=== PATIENT | female | born 1975 | race Caucasian/White ===

== ENCOUNTER 2016-11-14 22:04 | Emergency (ER) | payer OTHER ==
[~2016-11-14 22:04] MED LIST: ALPRAZOLAM PO; AMITRIPTYLINE150 MG PO; AMITRYPTYLINE PO; ANTIVERT PO; ASPIRIN PO; CELEXA PO; CLEOCIN PO; FLEXERIL PO; HYDROCODON-ACE1 EAC9 PO; HYDROCODONE-APA1 T55 PO; LOPID600 MG PO; LORTAB 5-325 M1 EACH PO; NICOTINE PATCH1 EACH TD; PREMARIN PO; PRILOSEC PO; PRILOSEC40 MG PO; QUETIAPINE FUM300 MG PO; SEROQUEL PO; SEROQUEL XR200 MG PO; SYNTHROID0.05 MG PO; SYNTHROID25 MCG PO; TOPAMAX PO; VALTREX PO; VALTREX500 MG PO; VOLTAREN75 MG PO; XANAX0.5 M1 PO; ZOFRAN PO
[2017-01-19] MEDS ORDERED: XANAX0.5 M1 (16:03)
== END 2016-11-14 23:13 | disposition home or self-care (01) ==
LOC: CED 22:04
DX: T40.1X1A Poisoning by heroin, accidental (unintentional), initial encounter (principal); E78.5 Hyperlipidemia, unspecified; F41.9 Anxiety disorder, unspecified; E03.9 Hypothyroidism, unspecified; F17.210 Nicotine dependence, cigarettes, uncomplicated; Z88.0 Allergy status to penicillin; Z90.49 Acquired absence of other specified parts of digestive tract; Z88.2 Allergy status to sulfonamides; Z88.8 Allergy status to other drugs, medicaments and biological substances; Z79.899 Other long term (current) drug therapy
CPT/HCPCS: 99282

== ENCOUNTER 2017-01-19 16:57 | Emergency (ER) | payer OTHER ==
--- NOTE | ~2017-01-19 | CR206 ---
[facility]. [facility] A Service of [facility] & [facility] RADIOLOGY TEXT RESULTS PATIENT: GIGI HANSEN LOCATION: SED : 71 UNIT #: [id number] AGE: [address]: DILAN CHAPARRO PA-C SEX: F ORDER DR: [id number] [address] [address] [id number] MR#: [id number] Acc #: [id number] NAME: GIGI HANSEN : 1975 SEX: F STUDY DATE/TIME: 01/19/2017 17:13 UNIT: SED ROOM: STUDY DESCRIPTION: CR Pelvis 1 or 2 Views Attending Physician: Dilan Chaparro Pa-C Ordering Physician: Dilan Chaparro Pa-C Primary Care Physician: Primary Care Physician No MEDICAL IMAGING REPORT This report is preliminary unless electronic signature is present. EXAM AP pelvis 01/19/2017 HISTORY Bilateral pelvic pain status post fall at work, 12/12/2016. Persistent pain. FINDINGS AP, supine examination of the pelvis shows satisfactory mineralization of the bony pelvis. The sacroiliac joints are normal. There is no indication of congenital defect, fracture, or dislocation at the articular anatomy of the sacral segments or of the hip joints. No malignant, lytic, or blastic change is present. IMPRESSION Normal pelvis. Dictated by... Thomas Whipple M.D. THIS IS AN ELECTRONICALLY VERIFIED REPORT Thomas Whipple M.D. at 01/20/2017 10:45 AM BELKIS/kareem TD: 01/20/2017 06:54 JOB #: [id number] MEDICAL IMAGING REPORT Page 1 of 1
[~2017-01-19 16:57] MED LIST changes: +XANAX0.5 M1
== END 2017-01-19 17:50 | disposition home or self-care (01) ==
LOC: SED 16:57
DX: M25.551 Pain in right hip (principal); M25.561 Pain in right knee; J45.909 Unspecified asthma, uncomplicated; F41.9 Anxiety disorder, unspecified; F17.210 Nicotine dependence, cigarettes, uncomplicated; Z86.19 Personal history of other infectious and parasitic diseases; Z90.49 Acquired absence of other specified parts of digestive tract; Z90.710 Acquired absence of both cervix and uterus; Z88.0 Allergy status to penicillin; Z88.1 Allergy status to other antibiotic agents; Z88.2 Allergy status to sulfonamides; W01.0XXA Fall on same level from slipping, tripping and stumbling without subsequent striking against object, initial encounter; Y92.69 Other specified industrial and construction area as the place of occurrence of the external cause; Y99.0 Civilian activity done for income or pay
CPT/HCPCS: 72170; 99283

== ENCOUNTER 2017-01-30 10:56 | Emergency (ER) | payer OTHER | END 2017-01-30 13:30 | disposition home or self-care (01) | LOC: CFTX 10:56 → CED 10:56 → CFTX 12:12 | DX: L03.114 Cellulitis of left upper limb (principal); F19.10 Other psychoactive substance abuse, uncomplicated; J44.9 Chronic obstructive pulmonary disease, unspecified; F17.210 Nicotine dependence, cigarettes, uncomplicated; Z88.0 Allergy status to penicillin; Z88.1 Allergy status to other antibiotic agents | CPT/HCPCS: 36415; 90471; 90715; 96365; 99284 ==

== ENCOUNTER → 2017-04-03 | Outpatient (CLI) | payer OTHER ==
--- NOTE | ~2017-04-03 | CR63 ---
[facility] A Service of [facility] RADIOLOGY TEXT RESULTS PATIENT: GIGI HANSEN LOCATION: [facility] : [birth year] UNIT #: [id number] AGE: [address]: Jason Long MD SEX: F ORDER DR: [id number] [facility] [address] [place], [place] [address] [id number] O MR#: [id number] Acc #: [id number] NAME: GIGI HANSEN : 1975 SEX: F STUDY DATE/TIME: 04/03/2017 11:26 UNIT: [facility] ROOM: STUDY DESCRIPTION: CR Chest 2 View Ordering Physician: Sara Long M.D. Primary Care Physician: Elliott French M.D. MEDICAL IMAGING REPORT This report is preliminary unless electronic signature is present EXAM Chest HISTORY 41-year-old woman, short of air, congestion. History of smoking and asthma. COMPARISON Chest 06/02/2015. FINDINGS Two-view exam demonstrates normal cardiac size and configuration. Hilar structures and mediastinal contours are preserved. Lungs are expanded and clear with no infiltrates. Minimal pleural response left costophrenic angle. Incidental note of the mid-thoracic compression fracture with the vertebroplasty. IMPRESSION No acute chest finding. Dictated by... Kojo Quintero M.D. THIS IS AN ELECTRONICALLY VERIFIED REPORT Kojo Quintero M.D. at 04/04/2017 7:07 AM JBB/pcl TD: 04/03/2017 19:38 JOB #: [id number] MEDICAL IMAGING REPORT [facility] A Service of [facility] RADIOLOGY TEXT RESULTS PATIENT: GIGI HANSEN LOCATION: [facility] : 71 UNIT #: [id number] AGE: [address]: Jason Long MD SEX: F ORDER DR: Page 1 of 1 COPY
== END | disposition home or self-care (01) ==
LOC: CRAD 11:14
DX: J45.40 Moderate persistent asthma, uncomplicated (principal); J20.9 Acute bronchitis, unspecified
CPT/HCPCS: 71020

== ENCOUNTER 2017-05-06 19:10 | Emergency (ER) | payer OTHER ==
[~2017-05-06] VITALS: Ht 162.6 cm; Wt 69.8 kg
[2017-05-06 20:17] LABS: BASOPHIL# 0.1 X10e3 (0-0.3); BASOPHIL% 0.8 % (0-2.5); EOSINOPHIL# 0.1 X10e3 (0-0.7); EOSINOPHIL% 1.6 % (0.0-7.0); HEMATOCRIT 41.4 % (35.0-45.0); HEMOGLOBIN 14.1 gm/dL (12.0-16.0); LYMPHOCYTE# 2.7 X10e3 (1.0-3.5); LYMPHOCYTE% 39.4 % (17.0-45.0); MEAN CELL VOLUME 90.7 FL (83-96); MEAN CORPUSCULAR HEMOGLOBIN 30.9 PG (28-34); MEAN CORPUSCULAR HGB CONC 34.1 g/dL (30-36); MEAN PLATELET VOLUME 8.5 FL (6.5-11.5); MONOCYTE# 0.4 X10e3 (0-1.0); MONOCYTE% 5.1 % (3.0-12.0); NEUTROPHIL# 3.6 X10e3 (1.5-7.1); NEUTROPHIL% 53.1 % (40-75); PLATELET COUNT 205 X10e3 (140-420); RED BLOOD COUNT 4.57 X10e (3.90-5.30); RED CELL DISTRIBUTION WIDTH 13.9 % (11.0-15.5); WHITE BLOOD COUNT 6.8 X10e3 (4.0-10.5)
[2017-05-06 20:19] LABS: CALCIUM SERUM 9.4 mg/dL (8.4-10.2); POTASSIUM 3.6 mmol/L (3.5-5.1)
[2017-05-06 20:49] LABS: DIFF IND NO
== END 2017-05-06 21:15 | disposition home or self-care (01) ==
LOC: CED 19:10
DX: L03.113 Cellulitis of right upper limb (principal); J44.9 Chronic obstructive pulmonary disease, unspecified; F17.200 Nicotine dependence, unspecified, uncomplicated
CPT/HCPCS: 36415; 80048; 85025; 99283